=== PATIENT | male | born 1960 | race Caucasian/White ===

== ENCOUNTER 2022-11-03 19:00 | Emergency (ER) | payer OTHER ==
--- OUTSIDE RECORDS SUMMARY | 2022-11-03 19:03 | XMS REPORT | Continuity of Care Document ---
:1960 Author Organization [facility] t Address [address] [place] [address] [place] [id number] Care Team Providers Name Role Phone Unavailable Unavailable Unavailable Problems This patient has no known problems. Allergies, Adverse Reactions, Alerts This patient has no known allergies or adverse reactions. Medications This patient has no known medications. Procedures This patient has no known procedures. Encounters Start End Encounter Admission Attending Care Care Encounter Source Date/Time Date/Time Type Type Clinicians Facility Department ID 2022-10-04 2022-10-04 Outpatient [facility] [id number] Filemon 13:53:41 13:53:41 [id number] F Josue 2022-09-23 2022-09-23 Outpatient [facility] [id number] [facility] 11:17:55 11:17:55 [id number] F Josue Results This patient has no known results.
[2022-11-03] MEDS ORDERED: KETOROLAC 30 MG/ML INJ ONE (19:46)
[2022-11-03] MEDS ORDERED: predniSONE 20 MG TAB ONE (19:46)
[2022-11-03] MEDS ORDERED: COLCHICINE 0.6 MG TAB ONE ×2 (19:46→20:59)
--- NOTE | 2022-11-03 21:44 | ER ---
Nurse's Notes [facility] Name: Dio Dumont Age: 62 yrs Sex: Male : 1960 Arrival Date: 11/03/2022 Time: 19:00 Bed 7 Private MD: Diagnosis: Gout, unspecified Presentation: 11/03 19:02 Chief complaint: Patient states: Severe bilateral knee pain for about a week and a nj1 half, patient states he has "a lot of gout on my knees". Coronavirus screen: Vaccine status: Patient reports being unvaccinated. Ebola Screen: Patient denies travel to an Ebola-affected area in the 21 days before illness onset. Initial Sepsis Screen: Does the patient meet any 2 criteria? HR > 90 bpm. No. Patient's initial sepsis screen is negative. Does the patient have a suspected source of infection? No. Patient's initial sepsis screen is negative. Risk Assessment: Do you want to hurt yourself or someone else? Patient reports no desire to harm self or others. Onset of symptoms was October 24, 2022. 19:02 Method Of Arrival: Ambulatory [facility] 19:02 Acuity: CHARO 3 nj1 Historical: - Allergies: 19:05 Morphine; nj1 19:05 "pain pills"; nj1 - Home Meds: 19:05 Allopurinol Oral [Active]; nj1 - PMHx: 19:05 Gout; nj1 - Immunization history:: Client reports receiving the 2nd dose of the Covid vaccine. - Social history:: Smoking status: Patient reports the use of cigarette tobacco products, smokes three packs cigarettes per day. Screenin:20 [facility] ED Fall Risk Assessment (Adult) History of falling in the last 3 months, aa5 including since admission No falls in past 3 months (0 pts) Confusion or Disorientation No (0 pts) Intoxicated or Sedated No (0 pts) Impaired Gait No (0 pts) Mobility Assist Device Used No (0 pt) Altered Elimination No (0 pt) Score/Fall Risk Level 0 - 2 = Low Risk. Abuse screen: Denies threats or abuse. Nutritional screening: No deficits noted. Tuberculosis screening: No symptoms or risk factors identified. Assessment: 19:20 General: Appears uncomfortable, Behavior is calm, cooperative. Pain: Complains of pain aa5 in juana knees Pain currently is 10 out of 10 on a pain scale. Quality of pain is described as Pt states "it's gout pain". Neuro: Level of Consciousness is awake, alert, obeys commands, Oriented to person, place, time, situation. Cardiovascular: Patient's skin is warm and dry. Respiratory: Airway is patent Respiratory effort is even, unlabored, Respiratory pattern is regular, symmetrical. GI: No signs and/or symptoms were reported involving the gastrointestinal system. : No signs and/or symptoms were reported regarding the genitourinary system. EENT: No signs and/or symptoms were reported regarding the EENT system. Derm: Skin is pink, warm \\T\\ dry. Musculoskeletal: Reports pain in right knee and left knee. 21:52 Reassessment: Patient appears in no apparent distress at this time. Patient states kl feeling better. Patient states symptoms have improved. Vital Signs: 19:02 BP 129 / 98; Pulse 119; Resp 18; Temp 98.1; Pulse Ox 98% ; Weight 115.67 kg; Height 5 nj1 ft. 9 in. ; Pain 10/10; 21:52 BP 128 / 77; Pulse 82; Resp 16; Pulse Ox 99% on R/A; kl 19:02 Body Mass Index 37.66 (115.67 kg, 175.26 cm) nj1 19:02 Pain Scale: Adult [facility] ED Course: 19:01 Patient arrived in ED. nj1 19:03 Briseida Fay FNP-C is [facility]. kb 19:03 Brenden Ambrocio MD is Attending Physician. kb 19:04 Archie Chance, GHANSHYAM is Primary Nurse. bp 19:05 Triage completed. nj1 19:07 Arm band placed on right wrist. nj1 19:20 Patient has correct armband on for positive identification. Bed in low position. Call aa5 light in reach. Side rails up X 1. Adult w/ patient. 21:52 No provider procedures requiring assistance completed. Patient did not have IV access kl during this emergency room visit. Administered Medications: 19:42 Drug: Ketorolac IM 10 mg Route: IM; Site: right deltoid; aa5 21:53 Follow up: Response: No adverse reaction; Marked relief of symptoms kl 19:42 Drug: predniSONE PO 40 mg Route: PO; aa5 21:52 Follow up: Response: No adverse reaction; Marked relief of symptoms kl 19:42 Drug: Colcrys PO 1.2 mg Route: PO; aa5 21:52 Follow up: Response: No adverse reaction; Marked relief of symptoms kl 20:52 Drug: Colcrys PO 0.6 mg Route: PO; kl 21:52 Follow up: Response: No adverse reaction; Marked relief of symptoms kl Medication: 21:53 VIS not applicable for this client. kl Outcome: 21:44 Discharge ordered by . milan 21:53 Discharged to home via wheelchair, with family. kl 21:53 Condition: improved 21:53 Discharge instructions given to patient, family, Instructed on discharge instructions, follow up and referral plans. medication usage, Demonstrated understanding of instructions, follow-up care, medications, Prescriptions given X 2. 21:54 Patient left the ED. Signatures: Briseida Fay, OYSTER CULLER-C OYSTER CULLER-Anna Mon RN RN Cady Haro RN RN aa5 Archie Chance RN RN bp Jaco, Norma, RN RN nj1
--- NOTE | 2022-11-03 21:44 | EDPHYS ---
Physician Documentation [facility] Name: Dio Dumont Age: 62 yrs Sex: Male : 1960 Arrival Date: 11/03/2022 Time: 19:00 Bed 7 Private MD: ED Physician Brenden Ambrocio HPI: 11/03 22:09 This 62 yrs old Male presents to ER via Ambulatory with complaints of Knee Pain. kb 22:09 Modifying factors: The symptoms are alleviated by nothing. the symptoms are aggravated kb by movement. Associated signs and symptoms: Pertinent positives: swelling, Pertinent negatives calf tenderness, fever, nausea, numbness, rash, tingling, vomiting, warmth, weakness. Treatment prior to arrival includes: no previous treatment. Severity of symptoms: At their worst the symptoms were moderate, in the emergency department the symptoms are unchanged. The patient has experienced similar episodes in the past. The patient has not recently seen a physician. 22:10 The patient presents with pain, swelling, tenderness. The complaints affect the right kb knee and left knee. Context: The problem was sustained at home, the patient can fully bear weight, the patient is able to ambulate. Onset: The symptoms/episode began/occurred 1.5 week(s) ago. Pt reports he has been having knee pain that has been switching from left to right for 1.5 weeks. States the pain is now in both knees. States the pain is caused by gout. Reports he has had this pain due to gout several times in the past and knows what it feels like. . Historical: - Allergies: 19:05 Morphine; nj1 19:05 "pain pills"; nj1 - Home Meds: 19:05 Allopurinol Oral [Active]; nj1 - PMHx: 19:05 Gout; nj1 - Immunization history:: Client reports receiving the 2nd dose of the Covid vaccine. - Social history:: Smoking status: Patient reports the use of cigarette tobacco products, smokes three packs cigarettes per day. ROS: 22:08 Constitutional: Negative for fever, chills, and weight loss. kb 22:08 MS/extremity: Positive for pain, swelling, of the right knee and left knee. 22:08 All other systems are negative. Exam: 22:08 Constitutional: This is a well developed, well nourished patient who is awake, alert, kb and in no acute distress. Head/Face: Normocephalic, atraumatic. ENT: Moist Mucous membranes Cardiovascular: Regular rate and rhythm with a normal S1 and S2. No gallops, murmurs, or rubs. No pulse deficits. Respiratory: Respirations even and unlabored. No increased work of breathing. Talking in full sentences Skin: Warm, dry with normal turgor. Normal color. Neuro: Awake and alert, GCS 15, oriented to person, place, time, and situation. Moves all extremities. Normal gait. 22:08 Musculoskeletal/extremity: Extremities: grossly normal except: noted in the right knee: pain, noted in the left knee: pain, swelling, tenderness, ROM: limited active range of motion due to pain, in the right knee and left knee, Circulation is intact in all extremities. Sensation intact. Weight bearing: able to fully bear weight. Vital Signs: 19:02 BP 129 / 98; Pulse 119; Resp 18; Temp 98.1; Pulse Ox 98% ; Weight 115.67 kg; Height 5 nj1 ft. 9 in. ; Pain 10/10; 21:52 BP 128 / 77; Pulse 82; Resp 16; Pulse Ox 99% on R/A; kl 19:02 Body Mass Index 37.66 (115.67 kg, 175.26 cm) nj1 19:02 Pain Scale: Adult nj1 MDM: 19:03 Patient medically screened. kb 22:09 Differential diagnosis: contusion, sprain, gout, cellulitis. Data reviewed: vital kb signs, nurses notes. Test considered but Not performed: X-ray: x-ray considered, but pt reports he had no injury and does not need an x-ray. Counseling: I had a detailed discussion with the patient and/or guardian regarding: the historical points, exam findings, and any diagnostic results supporting the discharge/admit diagnosis, the need for outpatient follow up, a family practitioner, to return to the emergency department if symptoms worsen or persist or if there are any questions or concerns that arise at home. Administered Medications: 19:42 Drug: Ketorolac IM 10 mg Route: IM; Site: right deltoid; aa5 21:53 Follow up: Response: No adverse reaction; Marked relief of symptoms kl 19:42 Drug: predniSONE PO 40 mg Route: PO; aa5 21:52 Follow up: Response: No adverse reaction; Marked relief of symptoms kl 19:42 Drug: Colcrys PO 1.2 mg Route: PO; aa5 21:52 Follow up: Response: No adverse reaction; Marked relief of symptoms kl 20:52 Drug: Colcrys PO 0.6 mg Route: PO; kl 21:52 Follow up: Response: No adverse reaction; Marked relief of symptoms kl Disposition Summary: 11/03/22 21:44 Discharge Ordered Location: Home kb Condition: Stable kb Diagnosis - Gout, unspecified kb Followup: kb - With: Emergency Department - When: As needed - Reason: Worsening of condition Followup: kb - With: Private Physician - When: 2 - 3 days - Reason: Recheck today's complaints, Continuance of care, Re-evaluation by your physician Discharge Instructions: - Discharge Summary Sheet kb - Gout, [id number] kb Forms: - Medication Reconciliation Form kb - Thank You Letter kb - Antibiotic Education kb - Prescription Opioid Use kb - [email or web address] kb Prescriptions: - indomethacin 25 mg Oral capsule - take 1 capsule by ORAL route every 8 hours As needed administer with food or kb milk; 21 capsule; Refills: 0, Product Selection Permitted - Prednisone 20 mg Oral Tablet - take 1 tablet by ORAL route once daily for 5 days; 5 tablet; Refills: 0, kb Product Selection Permitted Addendum: 11/05/2022 07:03 Co-signature as Attending Physician, Brenden Ambrocio MD I reviewed the patient's care r n provided by the Advanced Practice Provider and agree with the diagnosis and treatment plan. Signatures: Briseida Fay, AUTO BRAKE MECHANIC-C AUTO BRAKE MECHANIC-Ckb Anna Pendleton RN Brenden Gonzalez MD MD rn Calderon, Audri, RN RN aa5 Jackie Moreno RN RN nj1
[2022-11-03 22:18] VITALS: TEMP 98.1
[2022-11-03 22:20] VITALS: BP 128/77; O2SAT 99
== END 2022-11-03 21:54 | disposition home or self-care (01) ==
LOC: ER 19:00
DX: M10.9 Gout, unspecified (principal); F17.210 Nicotine dependence, cigarettes, uncomplicated; Z88.5 Allergy status to narcotic agent; Z88.6 Allergy status to analgesic agent
CPT/HCPCS: 96372; 99284; J7512